=== PATIENT | female | born 2000 | race Caucasian/White ===

== ENCOUNTER 2019-04-18 20:31 | Emergency (ER) | payer OTHER, MEDICAID ==
[~2019-04-18] VITALS: Ht 149.9 cm; Wt 77.0 kg
[2019-04-18 20:41] VITALS: BP 131/70
[2019-04-18] MEDS ORDERED: CYCL-1 PO (21:48)
[2019-04-18] MEDS ORDERED: NAPR-56 PO (21:48)
[2019-04-18] MEDS ORDERED: orphenadrine citrate 60mg/2ml inj. IM ONE (21:50)
[2019-04-18] MEDS ORDERED: ketorolac trometh inj. 60 MG/2 ML VIAL IM ONE (21:50)
--- NOTE | 2019-04-18 22:25 | NUR ---
pt was seen and treated by janell meyers before nurse assessed. pt discharged in stable condition.
== END 2019-04-18 22:21 | disposition home or self-care (01) ==
LOC: ER 20:31
DX: S13.4XXA Sprain of ligaments of cervical spine, initial encounter (principal); Z88.2 Allergy status to sulfonamides; Z79.899 Other long term (current) drug therapy; V49.59XA Passenger injured in collision with other motor vehicles in traffic accident, initial encounter; Y93.89 Activity, other specified; Y92.89 Other specified places as the place of occurrence of the external cause; Y99.8 Other external cause status
CPT/HCPCS: 96372; 99283; J1885; J2360